=== PATIENT | female | born 2000 | race African-American/Black ===

== ENCOUNTER 2021-05-13 09:03 | Emergency (ER) | payer MEDICAID ==
[~2021-05-13] VITALS: Ht 157.5 cm; Wt 45.0 kg
[2021-05-13] MEDS ORDERED: DEXAMETHASONE 10 MG/ML VIAL IM ONE (10:15)
[2021-05-13] MEDS ORDERED: KETOROLAC 30MG/ML VIAL IM ONE (10:15)
[2021-05-13 10:21] VITALS: BP 115/71
[2021-05-13] MEDS ORDERED: TOPUD MT (11:59)
== END 2021-05-13 12:11 | disposition home or self-care (01) ==
LOC: ER 09:03
DX: J02.9 Acute pharyngitis, unspecified (principal)
CPT/HCPCS: 81025; 87070; 87430; 96372; 99284; J1100; J1885